=== PATIENT | male | born 1950 | race Caucasian/White ===

== ENCOUNTER 2020-04-10 06:15 | Emergency (ER) | payer MEDICARE ==
[~2020-04-10] VITALS: Ht 177.8 cm; Wt 106.8 kg
[2020-04-10 06:31] VITALS: BP 145/59
[2020-04-10] MEDS ORDERED: ASPIRIN 325 MG TABLET PO ONE (06:45)
--- NOTE | 2020-04-10 06:45 | PHYS DOC ---
Past History Past Medical History: CHF, High Cholesterol, Hypertension, [place] Past Surgical History: Coronary Bypass Surgery Alcohol Use: None General Adult EDM: Chief Complaint: CHEST PAIN HPI: HPI: Patient is a 70-year-old male who presented to ER today for evaluation of chest pain, associate with dizziness seen earlier this morning. Patient could not sleep because the pain. Patient has history of coronary disease, history of CABG. 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 Somehow by the time he got here the pain subsided. Patient denies any cough or fever, no recent travel, no recent operation. Patient denies being exposed to anybody who tested positive for COVID-19. Review of Systems: Review of Systems: Constitutional: Denies fever or chills Eyes: Denies change in visual acuity HENT: Denies nasal congestion or sore throat Respiratory: Denies cough or shortness of breath Cardiovascular: Positive for chest pain, no edema GI: Denies abdominal pain, nausea, vomiting, bloody stools or diarrhea : Denies dysuria Musculoskeletal: Denies back pain or joint pain Integument: Denies rash Neurologic: Denies headache, focal weakness or sensory changes, positive for dizziness. Endocrine: Denies polyuria or polydipsia Lymphatic: Denies swollen glands Psychiatric: Denies depression or anxiety Heart Score: HEART Score for Chest Pain: HEART Score for Chest Pain Response (Comments) Value History Moderately Suspicious 1 ECG Nonspecific Repolarizatio 1 Age > 65 2 Risk Factors >3 Risk Factors or Hx CAD 2 Troponin < Normal Limit 0 Total 6 Risk Factors: Risk Factors: DM, Current or recent (<one month) smoker, HTN, HLP, family history of CAD, obesity. Risk Scores: Score 0 - 3: 2.5% MACE over next 6 weeks - Discharge Home Score 4 - 6: 20.3% MACE over next 6 weeks - Admit for Clinical Observation Score 7 - 10: 72.7% MACE over next 6 weeks - Early Invasive Strategies Allergies: Allergies: Allergies Coded Allergies Type Severity Reaction Last Updated Verified No Known Drug Allergies 04/10/20 No Physical Exam: PE: Constitutional: Well developed, well nourished, no acute distress, non-toxic appearance. [] HENT: Normocephalic, atraumatic, bilateral external ears normal, oropharynx moist, no oral exudates, nose normal. [] Eyes: PERRLA, EOMI, conjunctiva normal, no discharge. [] Neck: Normal range of motion, no tenderness, supple, no stridor. [] Cardiovascular:Heart rate regular rhythm, no murmur [] Lungs & Thorax: Bilateral breath sounds clear to auscultation [] Abdomen: Bowel sounds normal, soft, no tenderness, no masses, no pulsatile masses. [] Skin: Warm, dry, no erythema, no rash. [] Back: No tenderness, no CVA tenderness. [] Extremities: No tenderness, no cyanosis, no clubbing, ROM intact, no edema. [] Neurologic: Alert and oriented X 3, normal motor function, normal sensory function, no focal deficits noted. [] Psychologic: Affect normal, judgement normal, mood normal. [] Current Patient Data: Vital Signs: Vital Signs Date Time Temp Pulse Resp B/P (MAP) Pulse Ox O2 Delivery O2 Flow Rate FiO2 04/10/20 06:31 98.2 58 18 145/59 (87) 96 Room Air EKG: EKG: EKG was done at 622, heart rate of 66 beats per minute, sinus rhythm, no ST segment elevation. Radiology/Procedures: Radiology/Procedures: [][address] [address] IMAGING REPORT Signed PATIENT: MARILYN GREY AACCOUNT: [id number] : 1950 LOCATION: ER AGE: 70 SEX: M EXAM STATUS: REG ER ORD. PHYSICIAN: AVERY GAINES DO REASON: chest pain PROCEDURE: PORTABLE CHEST 1V EXAM: PORTABLE CHEST 1V INDICATION: Reason: chest pain / Spl. Instructions: / History: . TECHNIQUE: Single view COMPARISON: None FINDINGS: Heart is mildly enlarged. Post-CABG surgical changes are present. The great vessels appear unremarkable. There is no hilar or mediastinal mass. Lungs show volume loss in the right hemithorax with right diaphragmatic elevation and ill-defined airspace opacity in the medial right lung base. There is no pleural effusion or pneumothorax. There multiple chronic appearing right-sided rib fractures. IMPRESSION: Mild cardiomegaly with post-CABG surgical changes and chronic posttraumatic changes in the right hemithorax with ill-defined opacity at the right lung base, favored to be atelectasis. Electronically signed by: Alanna Stuart MD (04/10/2020 7:35 AM) [id number] DICTATED AND SIGNED BY: ALANNA STUART MD DATE: 04/10/20 0735 CC: DEBBY REESE MD; AVERY GAINES DO ~ Course & Med Decision Making: Course & Med Decision Making Pertinent Labs and Imaging studies reviewed. (See chart for details) Patient is a 70-year-old male with a history of coronary disease, status post CABG, presented to ER with chest pain. lab works and EKG did not show any acute problem. Patient is pain-free at this time. With his history and risk factors would recommend that patient to be admitted to [facility] for observation. Patient would like to be transferred to [facility] because where his gaming host is. Contacted [facility], Dr. Daly agreed to accept the patient. Daniel Disclaimer: Daniel Disclaimer: This electronic medical record was generated, in whole or in part, using a voice recognition dictation system. Departure Departure: Impression: Primary Impression: Chest pain Disposition: 02 XFER SHT-TRM HOSP (TRANSFERRED TO [facility], ACCEPTED BY DR. DALY) Condition: IMPROVED Justification of Admission: Justification of Admission: Justification of Admission Dx: N/A AVERY GAINES DO Apr 10, 2020 06:45
[2020-04-10 07:30] LABS: BASO # 0.1 x10^3/uL (0.0-0.2); BASO % 1 % (0-3); EOS # 0.4 x10^3/uL (0.0-0.7); EOS % 4 % (0-3); HEMATOCRIT 39.8 % (39.0-53.0); HEMOGLOBIN 13.8 g/dL (13.0-17.5); LYMPH # 1.5 x10^3/uL (1.0-4.8); LYMPH % 17 % (24-48); MEAN CORPUSCULAR HEMOGLOBIN 32 pg (25-35); MEAN CORPUSCULAR HGB CONC 35 g/dL (31-37); MEAN CORPUSCULAR VOLUME 92 fL (79-100); MONO # 0.7 x10^3/uL (0.0-1.1); MONO % 8 % (0-9); NEUT # 6.3 x10^3uL (1.8-7.7); NEUT % 70 % (31-73); PLATELET COUNT 166 x10^3/uL (140-400); RED BLOOD COUNT 4.32 x10^6/uL (4.30-5.70); RED CELL DISTRIBUTION WIDTH 13.8 % (11.5-14.5)
--- NOTE | 2020-04-10 07:39 | RAD ---
EXAM: PORTABLE CHEST 1V INDICATION: Reason: chest pain / Spl. Instructions: / History: . TECHNIQUE: Single view COMPARISON: None FINDINGS: Heart is mildly enlarged. Post-CABG surgical changes are present. The great vessels appear unremarkable. There is no hilar or mediastinal mass. Lungs show volume loss in the right hemithorax with right diaphragmatic elevation and ill-defined airspace opacity in the medial right lung base. There is no pleural effusion or pneumothorax. There multiple chronic appearing right-sided rib fractures. IMPRESSION: Mild cardiomegaly with post-CABG surgical changes and chronic posttraumatic changes in the right hemithorax with ill-defined opacity at the right lung base, favored to be atelectasis. Electronically signed by: Елена Stuart MD (04/10/2020 7:35 AM) [id number]
[2020-04-10 08:02] LABS: CALCIUM 9.4 mg/dL (8.5-10.1); CREATININE 1.2 mg/dL (0.7-1.3); GFR 59.5; POTASSIUM 4.3 mmol/L (3.5-5.1)
[2020-04-10 08:13] LABS: ALBUMIN 3.6 g/dL (3.4-5.0); MAGNESIUM 1.9 mg/dL (1.8-2.4); TOTAL BILIRUBIN 0.4 mg/dL (0.2-1.0); TOTAL PROTEIN 7.1 g/dL (6.4-8.2)
[2020-04-10 08:38] LABS: BACTERIA,URINE 0 /HPF (0-FEW); BILIRUBIN,URINE NEG (NEG); CLARITY,URINE CLEAR; COLOR,URINE YELLOW; GLUCOSE,URINE 100 mg/dL (NEG); NITRITE,URINE NEG (NEG); RBC,URINE OCC /HPF (0-2); UROBILINOGEN,URINE 0.2 mg/dL (0.2 mg/dL); WBC,URINE OCC /HPF (0-4)
--- NOTE | 2020-04-10 15:33 | EKG ---
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
== END 2020-04-10 12:30 | disposition short-term general hospital (02) ==
LOC: ER 06:15
DX: R07.9 Chest pain, unspecified (principal); R42 Dizziness and giddiness; I25.810 Atherosclerosis of coronary artery bypass graft(s) without angina pectoris; I11.0 Hypertensive heart disease with heart failure; I50.9 Heart failure, unspecified; E78.00 Pure hypercholesterolemia, unspecified; I25.2 Old myocardial infarction
CPT/HCPCS: 36415; 71045; 80053; 81001; 82947; 83690; 83735; 83880; 84484; 85025; 85610; 85730; 93005; 99285

== ENCOUNTER → 2020-09-16 | Outpatient (CLI) | payer MEDICARE ==
[~2020-09-16] MED LIST: ASPI-630 PO; ATORVASTATIN CA80 MG PO; CARV12.5 PO; CHOL500021 PO; LISI-334 PO; TAMS0.4C97 PO; TORS20TA2 PO
== END ==
LOC: LAB 08:40
PROVIDERS: ATTEND Nurse Anesthetist, Certified Registered
DX: Z01.818 Encounter for other preprocedural examination (principal); Z20.828 Contact with and (suspected) exposure to other viral communicable diseases
CPT/HCPCS: U0003

== ENCOUNTER → 2020-09-20 | Day surgery (SDC) | payer MEDICARE ==
[~2020-09-20] MED LIST changes: +IPRATRPIUM/ALBUTEROL 0.5/2.5MG 3 ML NEBU. NEB PRN; +IV RINGERS SOLUTION,LACTATED 1,000 ML IV SCH; +LIDOCAINE 2% PF 5 ML VIAL. ONE; +MIDAZOLAM HCL PF 2 MG/2 ML VIAL. IV ONE; +ONDANSETRON PF 4 MG/2 ML VIAL. IV PRN; +PROPOFOL 10,000 MCG/ML (20ML) VIAL IV ONE
[2020-09-20 11:10] VITALS: BP 105/68
--- NOTE | 2020-09-22 23:06 | PATHOLOGY ---
[facility] Accession Number: [id number] . 01 Material submitted: . PART A: colon - ASCENDING POLYP. Modifiers: ascending PART B: colon - SIGMOID POLYP. Modifiers: sigmoid . 01 Clinical history: . SCREENING . 02 Diagnosis: A. "Ascending polyp", biopsy: - Tubular adenoma; no high-grade dysplasia. . B. "Sigmoid polyp", biopsy: - Tubular adenoma; no high-grade dysplasia. . (CLW:richie; 09/22/2020) MBR 09/22/2020 1239 Local . 02 Electronically signed: . Micaela Reddy MD, Pathologist NPI- [id number] . 01 Gross description: . A. The specimen is received in formalin, labeled "Toro, Aly, ascending polyp" and consists of 2 fragments of pink-jauregui tissue measuring 0.3 x 0.1 cm and 0.5 x 0.4 cm which are entirely submitted in A1. . B. The specimen is received in formalin, labeled "Toro, Aly, sigmoid polyp" and consists of a fragment of pink-jauregui tissue measuring 0.6 x 0.2 cm which is entirely submitted in B1. (SDY; 09/21/2020) SYU/SYU 09/21/2020 1305 Local . 02 Pathologist provided ICD-10: D12.2, D12.5 . 02 CPT . 001318, 971638 Specimen Comment: A courtesy copy of this report has been sent to [phone] Specimen Comment: [phone] Specimen Comment: Report sent to / Performed at: [address], [place], [place] [id number] MD Jamie Dowling MD Phone: [phone] Performed at: [address] [id number] MD Allen Puga MD Phone: [phone]
== END | disposition home or self-care (01) ==
LOC: SURG 08:49
PROVIDERS: ATTEND Emergency Medicine
DX: Z12.11 Encounter for screening for malignant neoplasm of colon (principal); D12.2 Benign neoplasm of ascending colon; D12.5 Benign neoplasm of sigmoid colon; K64.8 Other hemorrhoids; K57.30 Diverticulosis of large intestine without perforation or abscess without bleeding; I25.2 Old myocardial infarction; I25.810 Atherosclerosis of coronary artery bypass graft(s) without angina pectoris; I11.0 Hypertensive heart disease with heart failure; I50.9 Heart failure, unspecified; E78.00 Pure hypercholesterolemia, unspecified; Z86.010 Personal history of colon polyps; Z79.899 Other long term (current) drug therapy; Z79.82 Long term (current) use of aspirin
CPT/HCPCS: 45380; J2001; J2704; J7120

== ENCOUNTER → 2021-06-28 | Outpatient (CLI) | payer MEDICARE ==
[2020-09-20 11:10] VITALS: BP 105/68
[~2021-06-28] MED LIST changes: +AZIT250T6 PO; -IPRATRPIUM/ALBUTEROL 0.5/2.5MG 3 ML NEBU. NEB PRN; -IV RINGERS SOLUTION,LACTATED 1,000 ML IV SCH; -LIDOCAINE 2% PF 5 ML VIAL. ONE; -LISI-334 PO; +LISI20TA18 PO; -MIDAZOLAM HCL PF 2 MG/2 ML VIAL. IV ONE; -ONDANSETRON PF 4 MG/2 ML VIAL. IV PRN; -PROPOFOL 10,000 MCG/ML (20ML) VIAL IV ONE
--- NOTE | 2021-06-28 11:05 | RAD ---
Site ID: [id number] EXAMINATION: XR CHEST 2V. HISTORY: 71 years Male Reason: PRODUCTIVE COUGH X1 WEEK. / Spl. Instructions: / History: . . COMPARISON: April 10, 2020. Findings: Chronic appearing deformity in the scapula and the multiple right ribs is seen. There is al so elevation of the right hemidiaphragm with the right basilar atelectasis. This appears to be chroni c with no significant change from 2020 exam. The heart size is normal. There is no effusion or pneumo thorax. The mediastinum and zabrina appear unremarkable. Sternotomy wires, pacemaker with 3 leads is seen. Impression: Elevated right hemidiaphragm with right basilar atelectasis similar to the previous exam. Electronically signed by: Jose Wakefield MD (06/28/2021 11:03 AM) [id number]
== END ==
LOC: RAD 10:48
PROVIDERS: ATTEND Family Medicine
DX: J98.11 Atelectasis (principal)
CPT/HCPCS: 71046

== ENCOUNTER 2021-07-01 16:48 | Emergency (ER) | payer MEDICARE ==
[~2021-07-01] VITALS: Ht 177.8 cm; Wt 106.8 kg
[~2021-07-01 16:48] MED LIST changes: -AZIT250T6 PO
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
[2021-07-01 17:40] VITALS: BP 131/76
[2021-07-01] MEDS ORDERED: AZIT250T6 PO (18:00)
[2021-07-01] MEDS ORDERED: AZITHROMYCIN 250 MG TABLET. PO ONE (18:30)
--- NOTE | 2021-07-01 18:41 | RAD ---
EXAMINATION: Chest radiograph. VIEWS: Single view COMPARISON: 06/28/2021 INDICATION:71 years, Male, cough. FINDINGS: Normal cardiomediastinal silhouette. Persistent elevation of the right hemidiaphragm. Right basilar s ubsegmental atelectasis, unchanged. No focal consolidation. No pleural effusion or pneumothorax. No a cute osseous process. Left chest wall pacemaker device remains unchanged and position. Median sternot jan wires with surgical clips. IMPRESSION: No acute cardiopulmonary process. Electronically signed by: Martha Villalpando MD (07/01/2021 6:39 PM) [facility]
== END 2021-07-01 18:10 | disposition home or self-care (01) ==
LOC: ER 16:48
DX: J18.9 Pneumonia, unspecified organism (principal); E78.00 Pure hypercholesterolemia, unspecified; I11.0 Hypertensive heart disease with heart failure; I50.9 Heart failure, unspecified; I25.2 Old myocardial infarction; Z95.1 Presence of aortocoronary bypass graft
CPT/HCPCS: 71045; 99283

== ENCOUNTER → 2021-10-23 | Outpatient (CLI) | payer MEDICARE ==
[~2021-10-23] MED LIST changes: +AZIT250T6 PO
--- NOTE | 2021-10-23 15:36 | RAD ---
Single view of the chest. 10/23/2021 3:27 PM Indication: Reason: VITAMIN D DEFICIENCY, UNSPECIFIED INFLUENZA POSITIVE Comparison: Chest radiograph May 01, 2021 Findings: The right hemidiaphragm is elevated, unchanged. No new infiltrate, pneumothorax, or effusio n is identified. Multiple healed right rib fractures and a right scapular fracture noted. Heart size is unchanged. Multilead pacemaking/ICD device from a left subclavian approach again noted. IMPRESSION: No radiographic evidence of acute cardiopulmonary process Electronically signed by: Gonzalo Reddy MD (10/23/2021 3:34 PM) [id number]
== END ==
LOC: RAD 15:01
PROVIDERS: ATTEND Family Medicine
DX: E55.9 Vitamin D deficiency, unspecified (principal); J11.1 Influenza due to unidentified influenza virus with other respiratory manifestations; Z95.810 Presence of automatic (implantable) cardiac defibrillator
CPT/HCPCS: 71046

== ENCOUNTER → 2021-12-11 | Outpatient (CLI) | payer MEDICARE ==
--- NOTE | 2021-12-11 09:28 | RAD ---
EXAM: Chest, 2 views. HISTORY: Short of breath. Cough. COMPARISON: 10/23/2021 FINDINGS: 2 views of the chest are obtained. There is suspected right basilar infiltrate. There is st able mild elevation of the right hemidiaphragm. There is a stable prominent cardiac silhouette and ev idence of prior CABG. There is a cardiac pacemaker defibrillator in expected position. There are mult iple chronic right rib fracture deformities and there is a healed right scapular fracture deformity. IMPRESSION: Suspected right basilar infiltrate superimposed on elevation of the right hemidiaphragm. Electronically signed by: Liliana Fishman MD (12/11/2021 9:25 AM) [id number]
== END ==
LOC: RAD 09:04
PROVIDERS: ATTEND Family Medicine
DX: R05.9 Cough, unspecified (principal); S22.31XA Fracture of one rib, right side, initial encounter for closed fracture; Z95.1 Presence of aortocoronary bypass graft; X58.XXXA Exposure to other specified factors, initial encounter; Y93.89 Activity, other specified; Y92.89 Other specified places as the place of occurrence of the external cause; Y99.8 Other external cause status
CPT/HCPCS: 71046